=== PATIENT | female | born 1960 | race Two or more races ===

== ENCOUNTER 2018-10-25 05:28 | Day surgery (SDC) | payer OTHER ==
[~2018-10-25 05:28] MED LIST: ATACAND32 MG PO; HUMLOG; HUMULOG; SYNTHROID200 MCG PO; SYNTHROID50 MCG PO; TUGEO
[2018-10-25] MEDS ORDERED: ULTRACET PO (13:59)
[2018-10-25] MEDS ORDERED: COLACE100 MG PO (14:00)
[2018-10-25] MEDS ORDERED: NEURONTIN300 MG PO (14:00)
== END 2018-10-25 17:45 | disposition home or self-care (01) ==
LOC: CIR.AMB 05:28
DX: K43.0 Incisional hernia with obstruction, without gangrene (principal)

== ENCOUNTER 2019-09-06 11:11 | Inpatient (IN) | payer OTHER ==
[~2019-09-06] VITALS: Ht 177.8 cm; Wt 68.9 kg
[~2019-09-06 11:11] MED LIST changes: +COLACE100 MG PO; +NEURONTIN300 MG PO; +ULTRACET PO
--- NOTE | 2019-09-06 11:29 | NUR ---
PTE MASCULINO ALERTA Y ORIENTADO EN LAS LORE ESFERAS REFIERE DOLOR ABDOMINAL, NAUSEAS DESDE ESTA MADRUGADA. SE UBICA PTE EN AREA DE OBSERVACION PARA EVALUACION MEDICA.
--- NOTE | 2019-09-06 12:24 | NUR ---
SE NOTIFICA AL TECNICO DE TERAPIA RESPIRATORIA SOBRE MUESTRA DE ABG'S A MISS. ALVES.
--- NOTE | 2019-09-06 13:12 | NUR ---
SE ORIENTA AL PACIENTE SOBRE MEDICAMENTO, CANALIZACION, MUESTRAS DE Z[place]ARIA[place] Y ABG MUESTRA DE ABG. PACIENTE REFIERE ENTENDER. SE PROCEEDE A COLECTAR LAS MUESTRAS DE [place]ARIA[place] Y CANALIZAR AL PACIENTE UTILIZANDO MEDIDAS ASEPTICAS. MUESTRAS SON ENVIADAS AL LABORATORIO. SE VERIFICA AREA DE VENOPUNCION Y LA MISMA SE OBSERVA MOE DE EDEMA Y ERITEMA. SE PROVEE EL MEDICAMENTO Y SE OBSERAV AL PACIENTE POR CAMBIOS DE CONDICION DE JANETH. SE ORIENTA ALPACIENTE SOBRE RADIOLOGIA Y EL PACIENTE REFIERE ENTENDER. RADIOLOGIA YA FUE REALIZADA AL MOMENTO.
--- NOTE | 2019-09-06 17:51 | NUR ---
PT ALERTA Y ORIENTADO X3 ESFERAS SE RECIBE EN ROSALVA CON BARANDAS ELEVADAS Y FRENOS COLOCADOS. HEPARIN LOCK E IVFLUIDS PATENTES. PT TOLERA TX, TRANQUILO Y SIN DIFICULTAD RESPIRATORIO. SE MANTIENE BAJO OBSERVACION POR CAMBIOS EN JANETH. SOLO AL MOMENTO.
[2019-09-10] MEDS ORDERED: FAMOTIDINE20 MG PO (14:28)
[2019-09-10] MEDS ORDERED: HUMALOG100 UNIT/1 SUBCUTANEO (14:29)
[2019-09-10] MEDS ORDERED: Lantus 1000 UNITS/10 SUBCUTANEO (14:29)
[2019-09-10] MEDS ORDERED: ZOFRAN4 MG PO (14:31)
[2019-09-10] MEDS ORDERED: SYNTHROID200 MCG PO (14:34)
[2019-09-10] MEDS ORDERED: LEVOTHYROXINE50 MCG PO (14:49)
[2019-09-10] MEDS ORDERED: LEVOTHYROXINE200 MCG PO (14:49)
== END 2019-09-10 16:17 | disposition home or self-care (01) | DRG 639 ==
LOC: EDSEX 11:11 → ER 11:11 → ICU-2 19:37 → MEDI 09-08 17:04
PROVIDERS: ADMIT Internal Medicine Cardiovascular Disease
PROC: 4A033R1 Measurement of Arterial Saturation, Peripheral, Percutaneous Approach (ICD-10-PCS; principal; 2019-09-06)
PROC: 3E0F7GC Introduction of Other Therapeutic Substance into Respiratory Tract, Via Natural or Artificial Opening (ICD-10-PCS; 2019-09-06)
DX: E11.10 Type 2 diabetes mellitus with ketoacidosis without coma (principal); Z21 Asymptomatic human immunodeficiency virus [HIV] infection status; I10 Essential (primary) hypertension; E03.9 Hypothyroidism, unspecified; E11.649 Type 2 diabetes mellitus with hypoglycemia without coma; Z91.14 Patient's other noncompliance with medication regimen; Z79.4 Long term (current) use of insulin

== ENCOUNTER 2020-12-17 12:16 | Inpatient (IN) | payer OTHER ==
[~2020-12-17] VITALS: Ht 170.2 cm; Wt 66.7 kg
[~2020-12-17 12:16] MED LIST changes: +FAMOTIDINE20 MG PO; +HUMALOG100 UNIT/1 SUBCUTANEO; +LEVOTHYROXINE200 MCG PO; +LEVOTHYROXINE50 MCG PO; +Lantus 1000 UNITS/10 SUBCUTANEO; +ZOFRAN4 MG PO
[2020-12-18] MEDS ORDERED: ISENTRESS HD600 MG (07:58)
[2020-12-24] MEDS ORDERED: PRE PROTEIN1 EACH PO (19:09)
[2020-12-24] MEDS ORDERED: AUGMENTIN XR 11 EACH PO (19:09)
[2020-12-24] MEDS ORDERED: FAMOTIDINE20 MG PO (19:09)
[2020-12-25] MEDS ORDERED: ATACAND HCT 321 EAC1 PO (11:44)
[2020-12-25] MEDS ORDERED: HYDRODIURIL12.5 MG PO (11:54)
== END 2020-12-24 19:22 | disposition home or self-care (01) | DRG 603 ==
LOC: MEDI 12:16 → MEDJ 12:16
PROVIDERS: ADMIT Internal Medicine Cardiovascular Disease; ATTEND Internal Medicine Cardiovascular Disease
PROC: BQ3FYZZ Magnetic Resonance Imaging (MRI) of Left Lower Leg using Other Contrast (ICD-10-PCS; principal; 2020-12-19)
DX: L03.116 Cellulitis of left lower limb (principal); E11.9 Type 2 diabetes mellitus without complications; Z79.4 Long term (current) use of insulin; I10 Essential (primary) hypertension; E03.8 Other specified hypothyroidism
CPT/HCPCS: 240; 73725

== ENCOUNTER 2021-09-09 07:23 | Outpatient (CLI) | payer OTHER ==
[~2021-09-09 07:23] MED LIST changes: +ATACAND HCT 321 EAC1 PO; +AUGMENTIN XR 11 EACH PO; +HYDRODIURIL12.5 MG PO; +ISENTRESS HD600 MG; +PRE PROTEIN1 EACH PO
== END 2021-09-09 07:41 | disposition home or self-care (01) ==
LOC: SONOGRAMA 07:23
PROVIDERS: ATTEND Internal Medicine Cardiovascular Disease
DX: R10.84 Generalized abdominal pain (principal)